=== PATIENT | male | born 1980 | race Caucasian/White ===

== ENCOUNTER 2025-07-24 21:16 | Emergency (ER) | payer BC, SELFPAY ==
--- NOTE | ~2025-07-24 | XR_ITS ---
EXAMINATION: XR elbow RT 2V, 07/24/2025 21:45 CDT HISTORY: right elbow pain, fall COMPARISON: No comparisons available. Findings: No acute fracture or malalignment. No significant degenerative changes. Soft tissues unremarkable. Impression: No acute fracture or malalignment. Reviewed, dictated and finalized at location A. Impression: No acute fracture or malalignment.
[2025-07-24 21:26] VITALS: BP 125/80; PULSE 73; RESP 13; O2SAT 98
[2025-07-24] MEDS: ONDANSETRON INJ 4 MG/2 ML VIAL IV PUSH (21:47)
[2025-07-24] MEDS: MORPHINE SULFATE (*CRX) 4 MG/ML INJ IV PUSH (21:47)
--- NOTE | 2025-07-24 21:47 | ED_ITS ---
HPI - Extremity Injury (Upper) General Chief Complaint: Extremity Injury, Upper Stated Complaint: Injured arm Time Seen by Provider: 07/24/25 21:33 Source: patient Mode of arrival: ambulatory Limitations: no limitations History of Present Illness HPI narrative: This is a 45-year-old male that presents to the emergency department after a fall today with right elbow pain. Reports he fell and scraped his left knee and landed on his right hand, felt a pop in his right elbow. Unable to move the elbow due to pain. Denies numbness. Related Data Allergies Allergy/AdvReac Type Severity Reaction Status Date / Time codeine AdvReac Mild Nightmare Verified 07/24/25 21:43 Review of Systems Review of Systems: All systems reviewed & are unremarkable except as noted in HPI and below PMFSH Past Medical History Medical History (Updated 07/24/25 @ 23:09 by Mary Anne Hoskins PA-C) History of diabetes mellitus History of hypertension Exam Narrative: GENERAL: Well-appearing, well-nourished, and in no acute distress. HEAD: Normocephalic, atraumatic. EYES: EOMI. CHEST: Clear to auscultation. No respiratory distress. No wheezes rales or rhonchi HEART: Regular rate and rhythm. No murmur heard. Normal peripheral pulses. EXTREMITIES: Decreased active range of motion in the right elbow. No obvious deformity. Normal radial pulse SKIN: Warm, dry, no rash. NEURO: No focal deficits. Alert and oriented x3. PSYCH: Normal mood and affect Course Vital Signs Vital signs: Vital Signs Pulse Rate 73 07/24/25 21:26 Respiratory Rate 13 07/24/25 21:26 Blood Pressure 125/80 07/24/25 21:26 Pulse Oximetry 98 07/24/25 21:26 Oxygen Delivery Room Air 07/24/25 21:26 Pulse Rate 73 07/24/25 21:26 Respiratory Rate 13 07/24/25 21:26 Blood Pressure 125/80 07/24/25 21:26 Pulse Oximetry 98 07/24/25 21:26 Oxygen Delivery Room Air 07/24/25 21:26 MDM - Extremity Injury (Upper) MDM Narrative Medical decision making narrative: Patient presents the emergency department after a fall today with right elbow injury. Patient is neurovascularly intact. Right elbow x-ray without acute osseous abnormality. Patient placed in a sling. Will be given follow-up with Orthopedics. He was given warnings to return to the ER Differential Diagnosis Differential diagnosis: Likely other (Elbow fracture, elbow sprain, elbow dislocation) Imaging Data Radiologist's impression: Right elbow x-ray: No fracture, dislocation or other acute bony abnormality. No clear evidence of joint effusion Critical Care Time Critical Care Time Critical Care Time: No Discharge Plan Discharge Clinical Impression: Sprain of elbow, right Qualifiers: Encounter type: initial encounter Qualified Code(s): S53.401A - Unspecified sprain of right elbow, initial encounter Patient Disposition: Home Condition: Stable Instructions: Elbow Sprain (ED) Additional Instructions: Return to the ER if you experience fever, redness and swelling of your extremity, numbness or any other symptoms that are concerning to you Wear sling. No weight on the affected extremity. Ice and elevate extremity. Tylenol or ibuprofen as needed for pain Follow up with Orthopedics for further care. Patient Language: Spanish Follow-up/Referrals: PHYSICIAN,TEACHER ADVISOR [Non-Staff, Internal Medicine] Sharan Ryan MD [Physician, Orthopedics]
[2025-07-24] MEDS: Please add drug allergy info to patient profile. 1 EACH XX (21:48)
== END 2025-07-24 23:29 | disposition home or self-care (01) ==
PROVIDERS: Emergency Provider Physician Assistant
DX: S53.401A Unspecified sprain of right elbow, initial encounter (principal); E11.9 Type 2 diabetes mellitus without complications; I10 Essential (primary) hypertension
CPT/HCPCS: 73070; 96374; 96375; 99284; A4565; J2270; J2405